=== PATIENT | female | born 2000 | race Hispanic/Latino ===

== ENCOUNTER 2020-10-02 08:34 | Inpatient (IN) | payer MEDICAID ==
[2020-10-02] MEDS ORDERED: MINERAL OIL 30 ML ORAL LIQD PO PRN ×2 (09:48→20:03)
[2020-10-02] MEDS ORDERED: ePHEDrine SULFATE 50 MG/1 ML INJ IV PRN ×2 (09:48→20:03)
[2020-10-02] MEDS ORDERED: TERBUTALINE 1 MG/1 ML INJ SUB-Q PRN ×2 (09:48→20:03)
[2020-10-02] MEDS ORDERED: OXYTOCIN DRIP 30 UNITS/500 ML BAG IV SCH ×3 (10:00→21:00)
[2020-10-02] MEDS: LACTATED RINGERS 1,000 ML IV SCH ×2 (10:07→17:43)
[2020-10-02 10:12] LABS: Hematocrit 32.7 % (30.3-42.9); Hemoglobin 10.5 gm/dl (10.1-14.3); Mean Corpuscular HGB Conc 32 % (30-34); Mean Corpuscular Volume 78 fl (79-97); Platelet Count 278 K/mm3 (140-440); Red Blood Count 4.21 M/mm3 (3.65-5.03); Red Cell Distribution Width 15.1 % (13.2-15.2)
[2020-10-02] MEDS ORDERED: LIDOCAINE (2%) 20 MG/1 ML VIAL 20 ML MDV INFILTRATI ONE ×2 (11:00→20:03)
[2020-10-02] MEDS ORDERED: OXYTOCIN 10 UNIT/1 ML INJ IM PRN (20:03)
[2020-10-02] MEDS ORDERED: METHYLERGONOVINE MALEATE 0.2 MG/ML VIAL IM PRN (20:03)
[2020-10-02] MEDS ORDERED: fentaNYL 100 MCG/2 ML INJ IV PRN (20:03)
[2020-10-02] MEDS ORDERED: BUTORPHANOL 2 MG/1 ML INJ IV PRN (20:03)
[2020-10-02] MEDS ORDERED: AMPICILLIN/NS 2 GM/100 ML 2 GM/100 ML BAG IV ONE (20:03)
[2020-10-02] MEDS ORDERED: PROMETHAZINE 25 MG TAB PO PRN (20:03)
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
[2020-10-02] MEDS ORDERED: LACTATED RINGERS 1,000 ML IV SCH (20:15)
--- NOTE | 2020-10-03 00:16 | Anesthesia Consultation ---
Anesthesia Consult and Med Hx Date of service: 10/03/20 - Airway Anesthetic Teeth Evaluation: Poor ROM Head & Neck: Adequate Mental/Hyoid Distance: Adequate Mallampati Class: Class III Intubation Access Assessment: Possibly Difficult - Pulmonary Exam CTA: Yes - Cardiac Exam Cardiac Exam: RRR - Pre-Operative Health Status ASA Pre-Surgery Classification: ASA3 Proposed Anesthetic Plan: Epidural - Pulmonary Hx Smoking: No Hx Asthma: No Hx Respiratory Symptoms: No SOB: No COPD: No Home Oxygen Therapy: No Hx Pneumonia: No Hx Sleep Apnea: No - Cardiovascular System Hx Hypertension: No Hx Coronary Artery Disease: No Hx Heart Attack/AMI: No Hx Angina: No Hx Percutaneous Transluminal Coronary Angioplasty (PTCA): No Hx Cardia Arrhythmia: No Hx Pacemaker: No Hx Internal Defibrillator: No Hx Valvular Heart Disease: No Hx Heart Murmur: No Hx Peripheral Vascular Disease: No - Central Nervous System Hx Neuromuscular Disorder: No Hx Seizures: No CVA: No Hx Back Pain: No Hx Psychiatric Problems: No - Gastrointestinal Hx Ulcer: No Hx Gastroesophageal Reflux Disease: Yes - Endocrine Hx Renal Disease: No Hx End Stage Renal Disease: No Hx Cirrhosis: No Hx Liver Disease: No Hx Insulin Dependent Diabetes: No Hx Non-Insulin Dependent Diabetes: No Hx Thyroid Disease: No Hx Hypothyroidism: Yes Hx Hyperthyroidism: Yes (Patient states has thryoid disease not on medication and not sure what type) - Hematic Hx Anemia: No Hx Sickle Cell Disease: No - Other Systems Hx Alcohol Use: No Hx Substance Use: No Hx Cancer: No Hx Obesity: Yes
[2020-10-03] MEDS ORDERED: ePHEDrine SULFATE 50 MG/1 ML INJ IV PRN (00:19)
[2020-10-03] MEDS: AMPICILLIN/NS 1 GM/50 ML 1 GM/50 ML BAG IV SCH ×3 (00:19→09:44)
[2020-10-03] MEDS ORDERED: NALOXONE 2 MG/2 ML INJ IV PRN (00:19)
--- NOTE | 2020-10-03 00:19 | Progress Note ---
Labor Epidural - Labor Epidural Start Time: 23:48 Stop Time: 00:01 Performed by:: JOSÉ ROSS Procedure: Patient is requesting a laboring epidural for laboring pain. Patient IDed, H&P reviewed, all questions and concerns were answered, and consent was signed. Timeout was performed at bedside. Patient in sitting position. Sterile prep and drape was performed. [3] ml of 1% lidocaine skin wheal at L[3]- L [4]. 18- gauge Tuohy epidural needle was advanced to loss of resistance with air technique 9cm. Negative CSF negative blood. Epidural catheter advanced to [14] centimeters. [NEGATIVE] Aspiration [NEGATIVE] test dose. Sterile dressing applied. Patient tolerated procedure.
[2020-10-03] MEDS: fentaNYL-BUPIV 2 MCG/ML-0.125% 200 MCG/100 ML BAG EPIDURAL SCH ×2 (00:47→10:20)
[2020-10-03] MEDS ORDERED: LIDOCAINE (2%) 20 MG/1 ML VIAL 20 ML MDV INFILTRATI ONE (11:08)
--- NOTE | 2020-10-03 14:07 | Procedure Note ---
OB Delivery Note - Delivery Date of Delivery: 10/03/20 Surgeon: SUJATHA SOSA Estimated blood loss: 200cc - Vaginal Delivery presentation: vertex Delivery position: OA Intrapartum events: none Delivery induction: oxytocin Delivery augmentation: rupture of membranes Delivery monitor: external FHT, external uterine Route of delivery: Delivery placenta: spontaneous Delivery cord: 3 umbilical vessels Episiotomy: none Delivery laceration: 1st degree Delivery repair: vicryl Anesthesia: epidural Delivery comments: Viable male delivered over intact perineum without any nuchal cord. He had spontaneous cry was placed on the maternal abdomen. Cord was clamped and cut when done pulsating. Apgars were 8 and 9. Placenta was delivered spontaneously and intact with three-vessel cord. Weight of the infant was 7 pounds. 318 8 g. A small first-degree laceration was repaired with 2-0 Vicryl without difficulty. There was excellent hemostasis at the end of this portion of the procedure. The patient tolerated procedure well. - Infant A at 1 minute: 8 at 5 minutes: 9 Gender: Male
--- NOTE | 2020-10-03 16:16 | Post Anesthesia Evaluation ---
- Post Anesthesia Evaluation Patient Participated: Yes Airway Patent: Yes Stable Respiratory Function: Yes Nausea/Vomiting: No Temp > 96.8F: Yes Pain Manageable: Yes Adequeate Hydration: Yes Anesthesia Complications: No Block Receding Appropriately: Yes Patient on Ventilator: No
[2020-10-03] MEDS ORDERED: HYDROcodone/ACETAMINOPHEN 5-325 MG TAB PO PRN (17:10)
[2020-10-03] MEDS ORDERED: PROMETHAZINE 25 MG TAB PO PRN (17:10)
[2020-10-03] MEDS ORDERED: WITCH HAZEL/ GLYCERIN PAD TP PRN (17:10)
[2020-10-03] MEDS ORDERED: IBUPROFEN 600 MG TAB PO SCH (17:10)
[2020-10-03] MEDS ORDERED: MAGNESIUM HYDROXIDE (MOM) ORAL LIQD UDC PO PRN (17:10)
[2020-10-03] MEDS ORDERED: LANOLIN/ZINC/DIMETHICONE (LANSINOH) 7 GM TP PRN (17:10)
[2020-10-03] MEDS ORDERED: ONDANSETRON 4 MG/2 ML INJ IV PRN (17:10)
[2020-10-03] MEDS ORDERED: diphenhydrAMINE 25 MG CAP PO PRN (17:10)
[2020-10-03] MEDS: IBUPROFEN 600 MG TAB PO SCH (17:45)
[2020-10-04] MEDS: IBUPROFEN 600 MG TAB PO SCH ×3 (00:15→12:31)
[2020-10-04 03:08] LABS: Hematocrit 29.9 % (30.3-42.9); Hemoglobin 9.7 gm/dl (10.1-14.3)
[2020-10-04] MEDS ORDERED: PRENATAL VIT27-FE FUMARATE-FOLIC ACID VIT TAB PO SCH (10:00)
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
--- NOTE | 2020-10-04 17:35 | Discharge Summary ---
Providers - Providers Date of Admission: 10/02/20 08:34 Date of discharge: 10/04/20 Attending physician: SUJATHA SOSA Primary care physician: SUJATHA SOSA Hospitalization Reason for admission: induction of labor Delivery: Laceration: 1st degree Other procedures: none complications: none Discharge diagnosis: IUP at term delivered [place] baby: male Hospital course: Unremarkable Condition at discharge: Good Disposition: DC-01 TO HOME OR SELFCARE Plan - Discharge Medications Prescriptions: Ibuprofen [Motrin] 800 mg PO Q8HR PRN #40 tablet PRN Reason: Pain, Mild (1-3) HYDROcodone/APAP 5-325 [[place] 5/325] 1 each PO Q6HR PRN #15 tablet PRN Reason: Pain - Provider Discharge Summary Activity: routine, no sex for 6 weeks, no heavy lifting 4 weeks Diet: routine Instructions: routine Additional instructions: [] Smoking cessation referral if applicable(refer to patient education folder for contact #) [] Refer to [facility]'s [facility] Booklet Call your doctor immediately for: * Fever > 100.5 * Heavy vaginal bleeding ( >1 pad per hour) * Severe persistent headache * Shortness of breath * Reddened, hot, painful area to leg or breast * Drainage or odor from incision. * Keep incision clean and dry at all times and follow doctor's instructions regarding bathing/showering - Follow up plan Follow up: SUJATHA SOSA MD [Primary Care Provider] - 6 Weeks
[2020-10-04 17:40] VITALS: BP 135/74
== END 2020-10-04 18:55 | disposition home or self-care (01) | DRG 775 ==
LOC: LD 08:34 → OB 10-03 17:02
PROVIDERS: ADMIT Obstetrics & Gynecology; ATTEND Obstetrics & Gynecology
PROC: 3E033VJ Introduction of Other Hormone into Peripheral Vein, Percutaneous Approach (ICD-10-PCS; principal; 2020-10-03)
PROC: 10E0XZZ Delivery of Products of Conception, External Approach (ICD-10-PCS; 2020-10-03)
PROC: 3E0R3BZ Introduction of Anesthetic Agent into Spinal Canal, Percutaneous Approach (ICD-10-PCS; 2020-10-03)
PROC: 00HU33Z Insertion of Infusion Device into Spinal Canal, Percutaneous Approach (ICD-10-PCS; 2020-10-03)
PROC: 0HQ9XZZ Repair Perineum Skin, External Approach (ICD-10-PCS; 2020-10-03)
DX: O99.214 Obesity complicating childbirth (principal); Z3A.39 39 weeks gestation of pregnancy; Z37.0 Single live birth; E66.01 Morbid (severe) obesity due to excess calories; O99.343 Other mental disorders complicating pregnancy, third trimester; F32.3 Major depressive disorder, single episode, severe with psychotic features; Z79.899 Other long term (current) drug therapy; Z20.822 Contact with and (suspected) exposure to COVID-19; O70.0 First degree perineal laceration during delivery
CPT/HCPCS: 36415; 59025; 85014; 85018; 85027; 86850; 86900; 86901; 96360; 96361; 96365; 96366; 96374; G0378; J0290; J2590; J3010; J7120; U0003